=== PATIENT | male | born 1950 | race Caucasian/White ===

== ENCOUNTER 2019-04-15 14:53 | Inpatient (IN) | payer OTHER, MEDICARE ==
[~2019-04-15] VITALS: Ht 182.9 cm; Wt 64.5 kg
[2019-04-15 16:10] LABS: Source, Urine Clean Catch
[2019-04-15 16:14] LABS: Bilirubin, Urine Neg (Neg); Blood, Urine 1+ (Neg); Glucose Qualitative, Urine Neg (Neg); Ketones, Urine 1+ (Neg); Leukocyte Esterase, Urine Neg (Neg); Nitrite, Urine Neg (Neg); Protein, Urine Neg (Neg); Specific Gravity, Urine 1.015 (1.003-1.022); Urobilinogen, Urine NORM (Normal)
[2019-04-15 16:19] LABS: Appearance, Urine Clear (Clear); Color, Urine Yellow (P-Yellow); White Blood Cells, Urine 0-2 /hpf (0-5)
[2019-04-15 16:20] LABS: Bacteria Few /hpf; Red Blood Cells, Urine 0-2 /hpf (0-2); Squamous Epithelial Cells Not Seen /hpf (Few)
[2019-04-15 16:28] LABS: U Amphetamine Screen Not Detected; U Barbituate Screen Not Detected; U Benzodiazapine Screen DETECTED; U Buprenorphine Screen Not Detected; U Cannabinoids Screen DETECTED; U Cocaine Screen Not Detected; U Methadone Screen Not Detected; U Methamphetamine Screen Not Detected; U Opiates Screen Not Detected; U Oxycodone Screen Not Detected; U Phencyclidine Screen Not Detected; U Propoxyphene Screen Not Detected
--- NOTE | 2019-04-15 18:06 | NUR ---
PT ARRIVES TO ICU, RESTLESS IN BED, ATTEMPTING TO CHEW ON BLANKETS. PT. TRANSFERRED TO ICU BED, PT BEGAN TO TRY AND GET OUT OF BED, NOT REDIRECTABLE, MUMBLING, CURSING AT STAFF. WHEN ASKING PT IF HE KNOWS WHERE HE IS PT STATES "AT THE [email or web address] STORE". PT GRABBING AT LINES AND ATTEMPTING TO GET OOB. BILAT WRIST RESTRAINTS PLACED, PT SATURATED IN URINE, CLEANED UP AND ATTENDS PLACED. PT. FIGHTING AGAINST RESTRAINTS YELLING OUT AND NOT FOLLOWING COMMAND, MED WITH ATIVAN PER CIWA UPON ARRIVAL. PT. PLACD ON PONY ROUGHER, HR LOW 100S, BP STABLE. CURRENTLY ON RA, BANANA BAG INFUSING. ADDITIONAL IV STARTED.
[2019-04-15 18:28] LABS: BASOPHILS ABSOLUTE AUTO 0.03 K/mm3 (0.00-0.23); BASOPHILS PERCENT AUTO 1 % (0-2); EOSINOPHILS ABSOLUTE AUTO 0.03 K/mm3 (0.00-0.68); EOSINOPHILS PERCENT AUTO 1 % (0-6); Hematocrit 36.6 % (37.0-53.0); Hemoglobin 12.7 g/dL (13.5-17.5); IMMATURE GRAN ABSOLUTE AUTO 0.01 K/mm3 (0.00-0.10); IMMATURE GRAN PERCENT AUTO 0 % (0-1); LYMPHOCYTES ABSOLUTE AUTO 1.01 K/mm3 (0.84-5.20); LYMPHOCYTES PERCENT AUTO 25 % (21-46); MONOCYTES PERCENT AUTO 13 % (4-13); Mean Corpuscular HGB 35.6 pg (26.0-34.0); Mean Corpuscular HGB Conc 34.7 g/dL (31.5-36.5); Mean Corpuscular Volume 103 fL (80-100); Mean Platelet Volume 11.8 fL (9.1-12.4); NEUTROPHILS PERCENT AUTO 60 % (41-73); Platelet Count 89 K/mm3 (150-400); RDW Coefficient Variation 13.7 % (11.7-14.2); RDW Standard Deviation 52.1 fL (35.1-46.3); Red Blood Cell Count 3.57 M/mm3 (4.30-5.90); White Blood Cell Count 3.98 K/mm3 (4.00-11.30)
[2019-04-15 18:40] LABS: Alanine Aminotransfer (ALT/SGP 131 U/L (12-78); Albumin, Blood 3.4 g/dL (3.4-5.0); Albumin/Globulin Ratio 0.9 (0.8-1.8); Alk Phos 150 U/L (50-136); Anion Gap 5 mmol/L (6-16); Aspartate Aminotrans (AST/SGOT 143 U/L (12-37); Bilirubin, Total 1.8 mg/dL (0.1-1.0); Blood Urea Nitrogen 23 mg/dL (8-24); Bun/Creatinine Ratio 29.9 (12.0-20.0); CO2, Blood 24 mmol/L (21-32); Calcium, Blood 8.7 mg/dL (8.5-10.1); Chloride, Blood 110 mmol/L (98-108); Creatinine, Blood 0.77 mg/dL (0.60-1.20); Ethanol (Alcohol), Blood, Med <3 mg/dL; Globulin, Blood 3.6 g/dL (2.2-4.0); Glomerular Filtration Rate >60 (60-); Glucose, Blood 106 mg/dL (70-99); Potassium, Blood 3.8 mmol/L (3.5-5.5); Sodium, Blood 139 mmol/L (136-145)
--- NOTE | 2019-04-15 19:00 | NUR ---
SHIFT SUMMARY PT. RESTING QUIETLY POST ADMIN OF ATIVAN, BILAT WRIST RESTRAINTS REMAIN IN PLACE FOR SAFETY. PT. VSS. REPORT TO ONCOMING RN.
--- NOTE | 2019-04-15 19:56 | NUR ---
PATIENT SLEEPING WITH SNORING RESP, MAINTAINING BIOX 97-99%. AWAKENS TO SLIGHT STIMULI, PULLING AT LINES AND CORDS WHEN AWAKE, BILAT WRIST RESTRAINTS REMAIN IN PLACE. EXPLAINED TO PATIENT HE WAS IN THE HOSPITAL, PATIENT MADE EYE CONTACT AND SAID REALLY THEN FELL BACK TO SLEEP. ATTENDS IN PLACE DUE TO OCCASIONAL INCONTINENCE.
[2019-04-15] MEDS ORDERED: FAMO20 PO (20:31)
[2019-04-15] MEDS ORDERED: FOLI1 PO (20:32)
[2019-04-15] MEDS ORDERED: LIDO700A20 TOP (20:33)
[2019-04-15] MEDS ORDERED: MIRT15 PO (20:35)
[2019-04-15] MEDS ORDERED: Hair, Skin & N1 EACH PO (20:36)
[2019-04-15] MEDS ORDERED: B-1100 M1 PO (20:36)
[2019-04-15] MEDS ORDERED: ALBU90OI INH (20:37)
[2019-04-15] MEDS ORDERED: CYCL10 PO (20:38)
[2019-04-15] MEDS ORDERED: CLON.1 PO (20:40)
[2019-04-15] MEDS ORDERED: HYDPAM50 PO (20:44)
[2019-04-15] MEDS ORDERED: LORA1 PO (20:48)
[2019-04-15] MEDS ORDERED: NICO2 PO (20:50)
[2019-04-15] MEDS ORDERED: OLAN5 PO (20:53)
[2019-04-15] MEDS ORDERED: TRAM50 PO (20:54)
--- NOTE | 2019-04-15 22:51 | NUR ---
PATIENT AWAKE AND AGITATED, ATTEMPTING TO GET OUT OF BED DESPITE REPEATED REORIENTATION AND REMINDING THAT HE IS TO UNSTABLE ON HIS FEET TO GET UP. PATIENT AWARE OF MONTH AND YEAR, UNSURE OF PLACE OR WHY IN HOSPITAL. ATTEMPTING TO HELP PATIENT USE THE URINAL, BUT PATIENT NOT STAYING STILL AND VERBALIZING THAT HE CAN'T URINATE IN BED HE IS URINATING BUT NOT LEAVING URINAL IN PLACE. DURING LINEN CHANGE PATIENT PUSHING AND CONTINUING TO ATTEMPT TO GET OUT OF BED. LINEN AND ATTENDS CHANGED AND BILAT WRIST RESTRAINTS CONTINUED. ATIVAN GIVEN FOR CIWA. PATIENT CONTINUES TO BE RESTLESS, 2ND DOSE ATIVAN GIVEN AND DOCTOR VAL CALLED, ORDER OBTAINED FOR PRECEDEX.
--- NOTE | 2019-04-16 02:15 | NUR ---
PATIENT INCONT OF URINE, CONTINUES TO BE RESISTANT TO USING URINAL IN BED. LINEN CHANGED AND CONDOM CATH PLACED.
[2019-04-16 04:02] LABS: BASOPHILS ABSOLUTE AUTO 0.03 K/mm3 (0.00-0.23); BASOPHILS PERCENT AUTO 1 % (0-2); EOSINOPHILS ABSOLUTE AUTO 0.09 K/mm3 (0.00-0.68); EOSINOPHILS PERCENT AUTO 3 % (0-6); Hematocrit 37.9 % (37.0-53.0); Hemoglobin 13.1 g/dL (13.5-17.5); IMMATURE GRAN ABSOLUTE AUTO 0.01 K/mm3 (0.00-0.10); IMMATURE GRAN PERCENT AUTO 0 % (0-1); LYMPHOCYTES ABSOLUTE AUTO 1.08 K/mm3 (0.84-5.20); LYMPHOCYTES PERCENT AUTO 34 % (21-46); MONOCYTES ABSOLUTE AUTO 0.37 K/mm3 (0.16-1.47); MONOCYTES PERCENT AUTO 12 % (4-13); Mean Corpuscular HGB 35.9 pg (26.0-34.0); Mean Corpuscular HGB Conc 34.6 g/dL (31.5-36.5); Mean Corpuscular Volume 104 fL (80-100); Mean Platelet Volume 11.1 fL (9.1-12.4); NEUTROPHILS ABSOLUTE AUTO 1.57 K/mm3 (1.96-9.15); NEUTROPHILS PERCENT AUTO 50 % (41-73); Platelet Count 88 K/mm3 (150-400); RDW Coefficient Variation 13.6 % (11.7-14.2); RDW Standard Deviation 53.1 fL (35.1-46.3); Red Blood Cell Count 3.65 M/mm3 (4.30-5.90); White Blood Cell Count 3.15 K/mm3 (4.00-11.30)
[2019-04-16 04:51] LABS: Alanine Aminotransfer (ALT/SGP 118 U/L (12-78); Albumin, Blood 3.1 g/dL (3.4-5.0); Albumin/Globulin Ratio 0.9 (0.8-1.8); Alk Phos 123 U/L (50-136); Anion Gap 6 mmol/L (6-16); Aspartate Aminotrans (AST/SGOT 124 U/L (12-37); Bilirubin, Total 2.1 mg/dL (0.1-1.0); Blood Urea Nitrogen 19 mg/dL (8-24); Bun/Creatinine Ratio 30.9 (12.0-20.0); CO2, Blood 24 mmol/L (21-32); Calcium, Blood 8.2 mg/dL (8.5-10.1); Chloride, Blood 109 mmol/L (98-108); Creatinine, Blood 0.61 mg/dL (0.60-1.20); Globulin, Blood 3.3 g/dL (2.2-4.0); Glomerular Filtration Rate >60 (60-); Glucose, Blood 98 mg/dL (70-99); Potassium, Blood 3.6 mmol/L (3.5-5.5); Sodium, Blood 139 mmol/L (136-145); Total Protein, Blood 6.4 g/dL (6.4-8.2)
--- NOTE | 2019-04-16 06:29 | NUR ---
SUMMARY PATIENT CONTINUES TO BE SPONTANEOUS AND UNPREDICTABLE, PATIENT A LITTLE MORE HELPFUL WITH CARE THIS AM. PATIENT CONTINUES TO BE CONFUSED AND AT TIMES HAVING CONVERSATION WITH SOMEONE NOT IN THE ROOM. PATIENT CONTINUES TO BE SURPRISED WHEN INFORMED THAT HE IS IN THE HOSPITAL, YET PATIENT ABLE TO VERBALIZE DATE AND YEAR. BILAT WRIST RESTRAINTS IN PLACE TO PREVENT ACCIDENTAL REMOVAL OF LINES AND CORDS. BED ALARM ON. HEART MONITOR SHOWING SINUS RHYTHM WITH FLIPPED T WAVE WITH RATE IN 50'S.
--- NOTE | 2019-04-16 07:20 | NUR ---
ASSUMED CARE OF PT AT 0700. REPORT FROM [facility]. PT RESTING IN BED, WAKES c VERBAL STIMULI, INCOHERANT CONVERSATION, THEN RETURNS TO SLEEP. PRECEDEX INFUSING AT 0.3 MCG/KG/HR. HARRIS. SB ON MONITOR. LUNGS CLEAR. ABD ROUND, SOFT NON TENDER. BT X 4. CONDOM CATH IN PLACE. WILL CONTINUE TO MONITOR.
--- NOTE | 2019-04-16 11:08 | NUR ---
PT SITTING UP IN BED. INITALLY THINKS THAT HE IS AT HOME, ABLE TO ORIENT EASILY. [facility] A&OX 3. ANSWERING QUESTIONS APPROPRIATELY. FOLLOWING COMMANDS. INTERMITTANTLY MAKING CONFUSED STATEMENT BUT ORIENTS EASILY. DRINKING PO FLUIDS s DIFFICULTY. MEDICATED c LIBRIUM PO, PRECEDEX PLACED ON STANDBY. DR LOMBARDO IN TO SEE PT. WILL CONTINUE TO MONITOR.
[2019-04-16 13:00] LABS: Anion Gap 5 mmol/L (6-16); Blood Urea Nitrogen 19 mg/dL (8-24); Bun/Creatinine Ratio 32.6 (12.0-20.0); CO2, Blood 24 mmol/L (21-32); Calcium, Blood 8.6 mg/dL (8.5-10.1); Chloride, Blood 110 mmol/L (98-108); Creatinine, Blood 0.58 mg/dL (0.60-1.20); Glomerular Filtration Rate >60 (60-); Glucose, Blood 97 mg/dL (70-99); Magnesium, Blood 2.1 mg/dL (1.6-2.4); Potassium, Blood 4.4 mmol/L (3.5-5.5); Sodium, Blood 139 mmol/L (136-145)
--- NOTE | 2019-04-16 13:26 | NUR ---
Safety Plan attempted as patient is in detox and has had previousx SI. Interview attempted but patient is too confused to be able to think and talk in a linear fashion. He does report he is [place], , has been in PTSD treatment x2 and ETOH x3. He is unable to give more details. Plan will be left in his paper chart and will be attempted again when he is clearer. Genesis Glez M.Ed., [facility] Director Behavioral Health
--- NOTE | 2019-04-16 17:50 | NUR ---
SHIFT SUMMARY PT HAD PERIOD OF A&OX 3, REDIRECTABLE, MINIMAL HALLUCINATIONS THIS SHIFT, DURING THIS TIME, PRECEDEX PLACED ON STANDBY AND RESTRAINTS REMOVED. PO LIBRIUM STARTED. PT PROGRESSED c VISUAL AND AUDITORY HALLUCINATIONS, BECAME ANGRY, REQUESTING TO LEAVE, PT A&O X 1. PRECEDEX RESTARTED AND RESTRAINTS PLACED. VSS. SECURITY CALLED TO PLACE MONEY IN SAFE. REPORT TO ONCOMING NURSE.
--- NOTE | 2019-04-16 20:03 | NUR ---
PATIENT SLEEPING WITH SNORING RESP, MAINTAINING BIOX 95-98% ON RA. AWAKENS TO SLIGHT STIMULI, FOLLOWING SIMPLE DIRECTION. ORIENTED TO SELF AND MONTH, SURPRISED TO BEING IN THE HOSPITAL. PRECEDEX DRIP CONTINUES AT 0.2MCG. DUE TO OCCASIONAL INCONTINENCE CONDOM CATH AND ATTENDS IN PLACE.
--- NOTE | 2019-04-16 23:45 | NUR ---
PATIENT AWAKENS TO VERBAL STIMULI, CONTINUES TO TH[facility], AWARE OF IT BEING STONE BUTTS. PATIENT ASKING ABOUT MISSING TATE, EXPLAINED TO PATIENT THAT HIS TATE WAS PUT IN THE SAFE AND THAT HE CAN GET IT ON DISCHARGE. PATIENT VERBALIZED THAT HE WAS THANKFUL AND FALLING BACK TO SLEEP WHEN UNDISTURBED. BILAT WRIST RESTRAINTS CONTINUED BUT TIED LOOSELY SO PATIENT CAN REPOSITION SELF IN BED. PATIENT VERBALIZE UNDERSTANDING REGARDING THE USE OF RESTRAINTS TO HELP HIM REMEMBER TO NOT PULL ON LINES AND CORDS.
--- NOTE | 2019-04-17 03:06 | NUR ---
PATIENT AWAKE, ABLE TO HOLD CONVERSATION. ABLE TO REMEMBER THAT HE IS IN [place] AND HE THE HOSPITAL, BUT CONTINUES TO BE UNSURE OF WHY HE IS HERE. PATIENT AGREED TO HAVING THE BILAT WRIST RESTRAINTS IN PLACE TO PREVENT ACCIDENTAL REMOVAL OF IV LINES.
--- NOTE | 2019-04-17 06:03 | NUR ---
PT ALERT AND FOLLOWING COMMAND, RESTRAINTS REMOVED @ 0500. PT ABLE TO VOID PER CONDOM CATH. C/O OF HIP PAIN, BACK AND NECK PAIN. CONTROLLED WITH FENTANYL PENDING ORDER FOR PO PAIN MED. NO ACUTE EVENTS WILL CONTINUE TO MONITOR
--- NOTE | 2019-04-17 07:31 | NUR ---
START OF SHIFT NOTE: RECEIVED REPORT FROM VISHAL BARLOW, ASSUMED CARE, PATIENT IS AWAKE, ALERT AND ORIENTED, SR WITH SLIGHTLY INVERTED T WAVE, LUNG SOUNDS CLEAR BUT DIMINISHED, BOWEL TONES PRESENT THROUGHOUT BUT HYPOACTIVE, PATIENT HAS CONDOM CATH IN PLACE, ASKING FOR PAIN MEDICATION, WILL CHECK ON TIMES, PEDAL PULSES PALPABLE, CARDIAC DIET IN PLACE, RESTRAINTS ARE OFF, PATIENT DOES NOT SHOW ANY S/S OF SHAKINESS, WITHDRAWAL AT THIS TIME, ASKED FOR DETOX PROGRAM, CALL LIGHT IN REACH, WILL CONTINUE TO MONITOR.
--- NOTE | 2019-04-17 08:15 | NUR ---
PATIENT RECEIVED 50 MCG OF FENTANYL IV FOR CHRONIC BACK, NECK, AND RIGHT LEG PAIN, CALL LIGHT IN REACH, WILL CONTINUE TO MONITOR.
--- NOTE | 2019-04-17 09:45 | NUR ---
PT EAGER TO "GO HOME FOR MIDWAY." REPORTS HE WILL LEAVE AMA IF NOT RELEASED. CALLED DR JAY TO INFORM HER OF PT'S WISHES. SHE REQUEST THAT PONCHO EVALUATE PT, THEY WERE UNABLE TO DO SO YESTERDAY R/T CONFUSION. CALLED MIRANDA MERCEDES NP TO COME CONSULT WITH PT.
--- NOTE | 2019-04-17 10:03 | NUR ---
PATIENT KEEPS ASKING THIS RN WHEN HE CAN GO HOME, PATIENT WAS INSTRUCTED THAT DR. JAY WILL COME IN AND ASSESS HIM.
--- NOTE | 2019-04-17 10:45 | NUR ---
MIRANDA MERCEDES, PSYCHIATRIC SERVICES IN TO SEE PATIENT.
--- NOTE | 2019-04-17 11:06 | NUR ---
PER MIRANDA MERCEDES, PATIENT IS READY TO BE DISCHARGED FROM A PSYCHIATRIC STANDPOINT.
--- NOTE | 2019-04-17 12:11 | NUR ---
DR. JAY IN TO SEE PATIENT, WILL DISCHARGE HOME, DR. JAY SPOKE WITH MIRANDA MERCEDES, MENTAL HEALTH SERVICES, PATIENT NEEDS RIDE HOME, THIS RN TRIED TO CALL HIS BUT NO ANSWER, LEFT MESSAGE TO CALL BACK, PATIENT WILL ALSO TRY TO GET IN TOUCH WITH HER.
[2019-04-17] MEDS ORDERED: Nicoderm Cq1 EAC1 TOP (12:21)
--- NOTE | 2019-04-17 14:30 | NUR ---
ITEMS PLACED IN SAFE WERE RETURNED TO PATIENT, FRANCESCA, SECURITY AND THIS RN WITNESSED PATIENT COUNTING HIS MONEY AND SIGN PAPERWORK THAT ALL TATE WAS ACCOUNTED FOR, CONTINUES TO TRY AND CALL TO GIVE HIM RIDE HOME, SITTING IN ROOM FULLY DRESSED AWAITING HER ARRIVAL.
--- NOTE | 2019-04-17 15:45 | NUR ---
PATIENT DISCHARGED TO HOME, DISCHARGE PAPERWORK WRITTEN AND VERBAL EXPLAINED AND GIVEN, PATIENT VERBALIZED UNDERSTANDING AND SIGNED DISCHARGE DOCUMENTS, RIDE HOME WILL BE PROVIDED BY [facility] THROUGH HI TO THE [facility].
== END 2019-04-17 15:41 | disposition home or self-care (01) | DRG 897 ==
LOC: ER 14:53 → ICUW 16:31
PROVIDERS: Physician Assistant; ADMIT Family Medicine
DX: F10.231 Alcohol dependence with withdrawal delirium (principal); R45.851 Suicidal ideations; D61.818 Other pancytopenia; F43.10 Post-traumatic stress disorder, unspecified; J44.9 Chronic obstructive pulmonary disease, unspecified; F17.210 Nicotine dependence, cigarettes, uncomplicated; F12.90 Cannabis use, unspecified, uncomplicated; Z88.0 Allergy status to penicillin; Z88.8 Allergy status to other drugs, medicaments and biological substances
CPT/HCPCS: 36415; 80048; 80053; 81001; 83605; 83735; 85025; 93005; 93010; 96365; 96375; 99285-25; G0480; J1650; J2060; J3010; J3360; J3411; J3475; J7030; J7040; J7042